=== PATIENT | female | born 1980 | race African-American/Black ===

== ENCOUNTER → 2016-08-02 | Outpatient (CLI) | payer OTHER ==
[~2016-08-02] MED LIST: BACTRIM DS TABL1 TAB PO; KEFLEX PO; VICODIN 5/500 T1 TAB PO
== END | disposition home or self-care (01) ==
LOC: CBAR 13:09
DX: Z01.812 Encounter for preprocedural laboratory examination (principal); E66.01 Morbid (severe) obesity due to excess calories
CPT/HCPCS: 36415; 84443; 86677; G0463